=== PATIENT | female | born 1940 | race Two or more races ===

== ENCOUNTER 2020-05-16 10:23 | Emergency (ER) | payer OTHER, BC ==
[~2020-05-16] VITALS: Ht 167.6 cm; Wt 99.8 kg
[2020-05-16] MEDS ORDERED: COZAAR50 MG (11:04)
== END 2020-05-16 19:38 | disposition home or self-care (01) ==
LOC: ER 10:23
DX: R05 Cough (principal); R06.02 Shortness of breath; R50.9 Fever, unspecified; T88.1XXA Other complications following immunization, not elsewhere classified, initial encounter; Y84.8 Other medical procedures as the cause of abnormal reaction of the patient, or of later complication, without mention of misadventure at the time of the procedure; Z20.822 Contact with and (suspected) exposure to COVID-19

== ENCOUNTER 2020-05-18 12:43 | Emergency (ER) | payer OTHER, BC ==
[~2020-05-18] VITALS: Ht 167.6 cm; Wt 99.8 kg
[~2020-05-18 12:43] MED LIST: COZAAR50 MG
== END 2020-05-18 17:31 | disposition home or self-care (01) ==
LOC: ER 12:43
DX: R06.02 Shortness of breath (principal); R05 Cough; R19.7 Diarrhea, unspecified; Z20.822 Contact with and (suspected) exposure to COVID-19